=== PATIENT | male | born 1970 | race African-American/Black ===

== ENCOUNTER 2020-04-23 17:44 | Emergency (ER) | payer OTHER ==
[~2020-04-23] VITALS: Ht 172.7 cm; Wt 90.0 kg
[2020-04-23] MEDS ORDERED: SODIUM CHLORIDE 0.9% 1,000 ML IV ONE (18:30)
[2020-04-23 18:55] LABS: BASOPHILS % 0.6 % (0.0-2.0); EOSINOPHILS % 1.7 % (0.0-5.0); HEMATOCRIT. 38.6 % (42.0-52.0); HEMOGLOBIN. 12.6 g/dL (14.0-18.0); LYMPHOCYTES % 34.1 % (20.0-50.0); MEAN CORPUSCULAR HEMOGLOBIN 26.5 pg (28.0-32.0); MEAN CORPUSCULAR VOLUME 81.1 fL (80.0-94.0); MEAN PLATELET VOLUME 7.6 fl (7.4-10.4); MONOCYTES % 7.2 % (2.0-8.0); NEUTROPHILS % 56.4 % (40.0-76.0); PLATELET 262 x1000/uL (130-400); RED BLOOD CELL COUNT 4.76 mill/uL (4.7-6.1); RED CELL DISTRIBUTION WIDTH 14.1 % (11.6-14.6)
[2020-04-23 19:02] LABS: CHLORIDE 108 mEq/L (98-107)
[2020-04-23 19:06] LABS: ETHANOL BLOOD < 10 mg/dL
[2020-04-23 19:12] LABS: PROTHROMBIN TIME 10.3 sec (9.6-11.0)
[2020-04-23 20:05] VITALS: BP 101/61
== END 2020-04-23 21:43 | disposition home or self-care (01) ==
LOC: EDBD 17:44 → ER 17:44 → CANBEDREQ 04-24 08:57
DX: R42 Dizziness and giddiness (principal); R53.1 Weakness
CPT/HCPCS: 36415; 70450; 71045; 80053; 80320; 83880; 84484; 85025; 85610; 93005; 96360; 99285; J7030; G0480